=== PATIENT | male | born 1980 | race Caucasian/White ===

== ENCOUNTER 2020-11-02 15:27 | Emergency (ER) | payer OTHER ==
[2020-11-02] MEDS ORDERED: Tetracaine HCl/PF 0.5% 4 ML Bottle EYEBOTH ONE (16:46)
[2020-11-02] MEDS ORDERED: Ketorolac 60 MG/2 ML SDV IM ONE (17:40)
--- NOTE | 2020-11-02 18:39 | CT ---
INDICATION: Possible metal for left eye/orbit. Patient was mildly today. TECHNIQUE: CT facial bones and face without IV contrast including axial, coronal and sagittal images. FINDINGS: Opaque foreign body is curvilinear and in the left intraorbital region medially, medial to the eye, on image 138 of series 201. This measures 4 mm in length. This could be an intraorbital metallic foreign body. Tiny opaque foreign body in the right medial orbit on image 145 is difficult to characterize and could be related to calcification or metal. No other intraorbital foreign body. Moderate loculated fluid and mucosal thickening left maxillary sinus. Diffuse moderately prominent mucosal thickening and fluid in bilateral ethmoidal sinuses. Small amounts of fluid and mucosal thickening and nodularity in the sphenoid and frontal sinuses. Small a moderate amount of loculated fluid and mucosal thickening and nodularity right maxillary sinus. Findings consistent with diffuse sinusitis. Metallic foreign body in the tongue. Mild adenopathy in the mid and upper neck and lower face with increased number of small mildly to prominent lymph nodes likely reactive in nature. Remainder negative. IMPRESSION: 1. Linear 4 mm opaque foreign body in the medial left intraorbital region medial to the eye/globe may be a metallic foreign body. Tiny opaque density in the right medial orbit could be a calcification or metallic foreign body. No other intraorbital opaque foreign body. 2. Moderately prominent diffuse changes of sinusitis greatest in the left maxillary sinus. 3. Mild adenopathy in the lower face and mid and upper neck should be inflammatory or reactive in nature. Other findings as above. Please note that all CT scans at this facility use dose modulation, iterative reconstruction, and/or weight-based dosing when appropriate to reduce radiation dose to as low as reasonably achievable. Dictated by Raciel Rosenberg MD @ 11/02/2020 6:38:[address] Raciel Rosenberg @ Nov 02 2020 6:38PM
--- NOTE | 2020-11-02 21:36 | EDM.PDOC ---
ED HPI GENERAL MEDICAL PROBLEM - General Chief Complaint: Eye Problems Stated Complaint: LEFT EYE PAIN Time Seen by Provider: 11/02/20 16:42 Source of Information: Reports: Patient History Limitations: Reports: No Limitations - History of Present Illness INITIAL COMMENTS - FREE TEXT/NARRATIVE: HISTORY AND PHYSICAL: History of present illness: Patient is a 39-year-old male who presents emergency room today with concern of foreign body to his left eye that occurred just prior to travel to the emergency room. Patient states that he was using a hammer at work and hitting a piece of metal. Patient states about the third hit on the piece of metal, a piece of metal flew up underneath his safety glasses and hit directly into his eye. Patient states since then, he has had significant pain of his eye and watering so came to the emergency room for further evaluation. Patient denies any glasses or contact use. Patient denies any visual changes. Denies any other symptoms or concerns. Patient denies fever, chills, chest pain, shortness of breath, or cough. Denies headache, neck stiff ness, change in vision, syncope, or near syncope. Denies nausea, vomiting, abdominal pain, diarrhea, constipation, or dysuria. Has not noted any blood in urine or stool. Patient has been eating and drinking appropriately. Review of systems: As per history of present illness and below otherwise all systems reviewed and negative. Past medical history: As per history of present illness and as reviewed below otherwise noncontributory. Surgical history: As per history of present illness and as reviewed below otherwise noncontributory. Social history: See social history for further information Family history: As per history of present illness and as reviewed below otherwise noncontributory. Physical exam: General: Patient is alert, oriented, and in no acute distress. Patient sitting comfortably on exam table. Vitals stable and reviewed by me. HEENT: Visual acuity intact. EOMS intact without pain or difficulty. Fluroscene stain performed without evidence of corneal abrasion/ulceration but there is a 1cm conjunctival laceration of the lateral left eye without evidence of globus rupture / negative Janes sign. Bilateral upper and lower lids everted without sign of foreign body. Negative for corneal opacity, hyphema, or hypopyon. Otherwise, atraumatic, normocephalic, pupils equal and reactive bilaterally, negative for conjunctival pallor or scleral icterus, mucous membranes moist, TMs normal bilaterally, throat clear, neck supple, nontender, trachea midline. No drooling or trismus noted. No meningeal signs. No hot potato voice noted. Lungs: Clear to auscultation, breath sounds equal bilaterally, chest nontender. Heart: S1S2, regular rate and rhythm without overt murmur Abdomen: Soft, nondistended, nontender. Negative for masses or hepatosplenomegaly. Negative for costovertebral tenderness. Pelvis: Stable nontender. Genitourinary: Deferred. Rectal: Deferred. Skin: Intact, warm, dry. No lesions or rashes noted. Extremities: Atraumatic, negative for cords or calf pain. Neurovascular unremarkable. Neuro: Awake, alert, oriented. Cranial nerves II through XII unremarkable. Cerebellum unremarkable. Motor and sensory unremarkable throughout. Exam nonfocal. Notes: Patient is a 39-year-old male who presents emergency room today with concern of abrasion from metal getting in his left eye. Upon arrival to the ED, patient is vitally stable and visual acuity intact. Patient does have an abrasion noted to the lateral conjunctival of the left eye. After applying tetracaine ophthalmic, patient still has significant discomfort and little alleviation of his discomfort. Given patient's discomfort, and unable to find any foreign body on exam, will obtain CT of orbits. CT of orbit shows linear 4 mm opaque foreign body in the medial left intraorbital region, medial to the eye/globe may be a metallic foreign body. Tiny opaque density in the right medial orbit could be a calcified or metallic foreign body. No other intraorbital opaque foreign body. Moderate prominent diffuse changes of sinusitis greatest on the left maxillary sinus. Mild michelle nopathy in the lower face and mid and upper neck should be inflammatory or reactive in nature. All incidental findings of imaging today discussed with patient have this followed up at a later date with the primary care provider. I did call and speak to the machine strap buckler on-call, Dr. Bustos, and thoroughly discussed patient's case. She will personally review patient's CT scan and call me back. Dr. Bustos is having difficulties obtaining the imaging and is requesting that patient be discharged from the emergency room and sent over to her clinic for further evaluation following discharge from the emergency room. She would like patient to receive ofloxacin ophthalmic before being sent as she is not able to access this tonight and get this to patient tonight. Our pharmacy currently does not have ofloxacin ophthalmic drops, but will provide patient with ciprofloxacin ophthalmic drops to apply to the affected eye. Discussed with patient the importance of going across the street to [place] to see Dr. Bustos, machine strap buckler, for further evaluation immediately following discharge from the emergency room. Strict return precautions thoroughly discussed with patient. Discussed importance for follow-up with Dr. Bustos. Voices understanding and is agreeable to plan of care. Denies any further questions or concerns at this time. Diagnostics: fluoroscene bauer lamp, CT orbit Therapeutics: Tetracaine ophthalmic, toradol Prescription: Ciprofloxacin ophthalmic Impression: Conjunctival abrasion, left, possible retained foreign body Plan: 1. Apply medication to affected eye as prescribed. You can alternate ibuprofen and Tylenol as directed for pain and discomfort. 2. Following discharge from the emergency room, go immediately to [place] [facility] to meet with Dr. Bustos, ophthalmology. She is waiting for you on the first floor of the clinic. 3. Return to the ED as needed and as discussed. Definitive disposition and diagnosis as appropriate pending reevaluation and rev iew of above. left eye Pain Score (Numeric/FACES): 9 - Related Data Allergies Allergy/AdvReac Type Severity Reaction Status Date / Time No Known Allergies Allergy Verified 11/02/20 16:33 Home Meds: Home Meds . [No Known Home Meds] 11/02/20 [History] Past Medical History - Infectious Disease History Infectious Disease History: Reports: None - Past Surgical History GI Surgical History: Reports: Appendectomy, Cholecystectomy Social & Family History - Family History Family Medical History: No Pertinent Family History - Tobacco Use Tobacco Use Status *Q: Current Every Day Tobacco User Years of Tobacco use: 17 Packs/Tins Daily: 1 - Caffeine Use Caffeine Use: Reports: None - Recreational Drug Use Recreational Drug Use: No ED ROS GENERAL - Review of Systems Review Of Systems: Comprehensive ROS is negative, except as noted in HPI. ED EXAM GENERAL W FULL EYE - Physical Exam Exam: See Below (see dictation) Course - Vital Signs Last Recorded V/S: Last Vital Signs Temp 98.2 F 11/02/20 16:33 Pulse 77 11/02/20 16:33 Resp 17 11/02/20 16:33 BP 136/88 11/02/20 16:33 Pulse Ox 97 11/02/20 16:33 - Orders/Labs/Meds Orders: Active Orders 24 hr Category Date Time Status Communication Order [RC] STAT Care 11/02/20 16:46 Active Ciprofloxacin [Ciloxan 0.3% Ophth Soln] Med 11/02/20 21:45 Active 1 ml EYELF Q4H Medication Orders Ciprofloxacin (Ciprofloxacin 0.3% Ophth Soln 5 Ml Bottle) 1 ml EYELF Q4H YING Meds: Medications Generic Name Dose Route Start Last Admin Trade Name Freq PRN Reason Stop Dose Admin Ciprofloxacin 1 ml 11/02/20 21:45 Ciprofloxacin 0.3% Ophth Soln 5 Ml Bottle EYELF Q4H YING Discontinued Medications Generic Name Dose Route Start Last Admin Trade Name Freq PRN Reason Stop Dose Admin Ketorolac Tromethamine 60 mg 11/02/20 17:40 11/02/20 17:50 Ketorolac 60 Mg/2 Ml Sdv IM 11/02/20 17:41 60 mg ONETIME ONE Administration Tetracaine HCl 2 ml 11/02/20 16:46 11/02/20 17:07 Tetracaine Hcl/Pf 0.5% 4 Ml Bottle EYEBOTH 11/02/20 16:47 1 applic ASDIRECTED ONE Administration Departure - Departure Time of Disposition: 21:34 Disposition: Home, Self-Care 01 Clinical Impression: Conjunctival abrasion Qualifiers: Encounter type: initial encounter Laterality: left Qualified Code(s): S05.02XA - Injury of conjunctiva and corneal abrasion without foreign body, left eye, initial encounter - Discharge Information Instructions: Corneal Abrasion, [id number] Referrals: PCP,None [Primary Care Provider] - Forms: ED Department Discharge Additional Instructions: The following information is given to patients seen in the emergency department who are being discharged to home. This information is to outline your options for follow-up care. We provide all patients seen in our emergency department with a follow-up referral. The need for follow-up, as well as the timing and circumstances, are variable depending upon the specifics of your emergency department visit. If you don't have a primary care physician on staff, we will provide you with a referral. We always advise you to contact your personal physician following an emergency department visit to inform them of the circumstance of the visit and for follow-up with them and/or the need for any referrals to a consulting specialist. The emergency department will also refer you to a specialist when appropriate. This referral assures that you have the opportunity for follow-up care with a specialist. All of these measure are taken in an effort to provide you with optimal care, which includes your follow-up. Under all circumstances we always encourage you to contact your private physician who remains a resource for coordinating your care. When calling for follow-up care, please make the office aware that this follow-up is from your recent emergency room visit. If for any reason you are refused follow-up, please contact the [facility] Emergency Department at and asked to speak to the emergency department charge nurse. [facility], Ophthalmology, Dr. Bustos [address] [place] [address] 1. Apply medication to affected eye as prescribed. You can alternate ibuprofen and Tylenol as directed for pain and discomfort. 2. Following discharge from the emergency room, go immediately to [place] [facility] to meet with Dr. Bustos, ophthalmology. She is waiting for you on the first floor of the clinic. 3. Return to the ED as needed and as discussed. Sepsis Event Note (ED) - Focused Exam Vital Signs: Vital Signs Temp Pulse Resp BP Pulse Ox 11/02/20 16:33 98.2 F 77 17 136/88 97 - My Orders Last 24 Hours: My Active Orders 11/02/20 16:46 Communication Order [RC] STAT 11/02/20 21:45 Ciprofloxacin [Ciloxan 0.3% Ophth Soln] 1 ml EYELF Q4H - Assessment/Plan Last 24 Hours: My Active Orders 11/02/20 16:46 Communication Order [RC] STAT 11/02/20 21:45 Ciprofloxacin [Ciloxan 0.3% Ophth Soln] 1 ml EYELF Q4H
[2020-11-02] MEDS ORDERED: Ciprofloxacin 0.3% Ophth Soln 5 ML Bottle EYELF SCH (21:45)
== END 2020-11-02 21:53 | disposition home or self-care (01) ==
LOC: MW.ED 15:27
DX: S05.32XA Ocular laceration without prolapse or loss of intraocular tissue, left eye, initial encounter (principal); W22.8XXA Striking against or struck by other objects, initial encounter
CPT/HCPCS: 70486; 96372; 99283; J1885

== ENCOUNTER 2021-02-17 06:39 | Emergency (ER) | payer SELFPAY ==
[2021-02-17] MEDS ORDERED: Ketorolac 15 MG/ML SDV IM ONE (06:49)
[2021-02-17] MEDS ORDERED: Aspirin 81 MG Tab.Chew PO ONE (06:49)
--- NOTE | 2021-02-17 06:57 | EDM.PDOC ---
<Santana Zelaya - Last Filed: 02/17/21 06:56> ED HPI GENERAL MEDICAL PROBLEM - General Chief Complaint: Respiratory Problem Stated Complaint: SHORTNESS OF BREATH, CONGESTED Time Seen by Provider: 02/17/21 06:45 - History of Present Illness INITIAL COMMENTS - FREE TEXT/NARRATIVE: CHIEF COMPLAINT(S): "I cannot breathe." HISTORY OF PRESENT ILLNESS: This is a 40-year-old man without any significant pa st medical history who comes to the emergency department with a chief complaint of "I cannot breathe." Patient states that he presents to the emergency department because he has been experiencing 3 days of shortness of breath. He states that he just cannot breathe. He states that he does not have any exertional dyspnea but states that he is coughing which is nonproductive. However he states that he is having hemoptysis a significant amount every time he coughs. He describes it as bright red blood. He denies any recent travel, recent surgery or prior history of DVT or PE. He states that he has never had a history of hemoptysis. He states that he has mild congestion but has not had any epistaxis. In addition to the shortness of breath and hemoptysis he states that he is having chest pain which is located on the left side of his chest with radiates upwards. He describes his pain as achy and rated 4-5 out of 10. He has not yet tried any pain medication other than NyQuil which has not relieved his pain. There are no exacerbating or relieving factors. He states that he does have a significant family history of heart issues where his dad in his late 30s after a heart attack. He denies any personal history of CAD or CHF. He states that he is not able to taste or smell. He has not been vaccinated. REVIEW OF SYSTEMS: Constitutional: Denies fever, chills. Eyes: Denies eye pain Ears, Nose, Mouth, & Throat: Positive for runny nose and congestion. Denies earache Cardiovascular: Positive for chest pain Respiratory: Positive for shortness of breath hemoptysis Gastrointestinal: Denies Nausea, vomiting, diarrhea, hematochezia. Genitourinary: Denies hematuria Skin:Denies a rash MSK: Denies joint pain Neurological: Positive for loss of taste and smell. Denies blurred vision, numbness, tingling, weakness Psychiatric: Denies depression PAST MEDICAL HISTORY: As per history of present illness and as reviewed below otherwise noncontributory. SURGICAL HISTORY: As per history of present illness and as reviewed below otherwise noncontributory. SOCIAL HISTORY: As per history of present illness and as reviewed below otherwise noncontributory. FAMILY HISTORY: As per history of present illness and as reviewed below otherwise noncontributory. EXAMINATION OF ORGAN SYSTEMS/BODY AREAS: Constitutional: Blood pressure is 116/79, heart rate 66, respiratory 20 with an oxygen saturation 98% on room air. Temperature 36.9 General: Young man who does not appear to be in acute distress Psychiatric: Appropriate mood and affect. Eyes: No scleral icterus or conjunctival erythema ENMT: Moist mucous membranes. No pharyngeal erythema bilateral nasal turbinates with clear nasal drainage. No evidence of epistaxis. Cardiovascular: Regular, rate, and rhythm. No gallops, murmurs, or rubs. Bilateral upper extremity pulses symmetric and intact. No peripheral edema. No JVD. Respiratory: Lungs clear to auscultation bilaterally. No wheezes, rales, or rhonchi. Gastrointestinal: Soft, non-tender, non-distended. Normoactive bowel sounds Genitourinary: No suprapubic tenderness Musculoskeletal: Normal range of motion. Skin: No lesions or abrasions. Neurological: Alert, GCS 15 MEDICAL DECISION MAKING AND COURSE IN THE ED WITH INTERPRETATION/REVIEW OF DIAGNOSTIC STUDIES: This is a 40-year-old man without any significant past medical history who comes to the emergency department with 3 days of shortness of breath, cough which is described as hemoptysis who has had loss of taste and smell with some chest pain with a significant family history in his father who at young age from CAD/heart attack. Given the patient's family history will obtain a cardiac work-up. EKG was obtained which did not reveal any acute signs of ischemia. Given the hemoptysis will obtain a CT angiogram of the chest to evaluate for pulmonary embolism. Given the loss of taste and smell I do believe this is possibly secondary to COVID-19. We will provide the patient w ith Toradol and aspirin. Patient was placed on cardiac monitoring and pulse oximetry. Cardiac monitoring did reveal sinus rhythm and pulse ox with good waveform was 98% on room air. DDx: COVID-19 pneumonia, bacterial pneumonia, ACS, pulmonary embolism DISPOSITION: At the time of signout the patient was pending complete work-up and final disposition. Patient was signed out to oncoming day team physician CONDITION: Fair PROCEDURES: None FINAL IMPRESSION(S)/DIAGNOSES: 1. Acute dyspnea 2. Acute chest pain 3. Acute hemoptysis Santana Zelaya M.D. Bilateral Trunk Pain Score (Numeric/FACES): 8 - Related Data Allergies Allergy/AdvReac Type Severity Reaction Status Date / Time No Known Allergies Allergy Verified 02/17/21 06:48 Home Meds: Home Meds Azithromycin [Zithromax] 250 mg PO DAILY #4 tablet 02/17/21 [Rx] Ibuprofen 600 mg PO Q6HR PRN #30 tablet 02/17/21 [Rx] Past Medical History - Past Health History Medical/Surgical History: Denies Medical/Surgical History - Infectious Disease History Infectious Disease History: Reports: None - Past Surgical History Head Surgeries/Procedures: Reports: None GI Surgical History: Reports: Appendectomy, Cholecystectomy Social & Family History - Family History Family Medical History: No Pertinent Family History - Caffeine Use Caffeine Use: Reports: None - Recreational Drug Use Recreational Drug Use: No ED ROS GENERAL - Review of Systems Review Of Systems: See Below ED EXAM, GENERAL - Physical Exam Exam: See Below Departure - Departure Disposition: Home, Self-Care 01 Clinical Impression: Bronchitis - Discharge Information Instructions: Upper Respiratory Infection, Adult, [id number], Acute Bronchitis, Adult, [id number] Forms: ED Department Discharge Additional Instructions: Your seen and evaluated in ER today secondary to cough and sinus symptoms that could be concerning for coronavirus or other viral infections. All your test in emergency department today were unremarkable with a negative Covid/influenza test. Your CT scan did not reveal any pathology within your chest. Your EKG and your heart enzymes are all within normal limits. You will be given a prescription for Zithromax to take as well as ibuprofen to help you with fevers and muscle aches. Please make an appointment see your family doctor in 1 to 2 days. Please return to the ER if you develop any new or concerning symptoms. The following information is given to patients seen in the emergency department who are being discharged to home. This information is to outline your options for follow-up care. We provide all patients seen in our emergency department with a follow-up referral. The need for follow-up, as well as the timing and circumstances, are variable depending upon the specifics of your emergency department visit. If you don't have a primary care physician on staff, we will provide you with a referral. We always advise you to contact your personal physician following an emergency department visit to inform them of the circumstance of the visit and for follow-up with them and/or the need for any referrals to a consulting specialist. The emergency department will also refer you to a specialist when appropriate. This referral assures that you have the opportunity for follow-up care with a specialist. All of these measure are taken in an effort to provide you with optimal care, which includes your follow-up. Under all circumstances we always encourage you to contact your private physician who remains a resource for coordinating your care. When calling for follow-up care, please make the office aware that this follow-up is from your recent emergency room visit. If for any reason you are refused follow-up, please contact the [facility] Emergency Department at and asked to speak to the emergency department charge nurse. [facility] - Primary Care [address] [place] [address] [place] [address] Sepsis Event Note (ED) - Evaluation Sepsis Screening Result: No Definite Risk <Aakash Chang - Last Filed: 02/17/21 09:00> ED HPI GENERAL MEDICAL PROBLEM - History of Present Illness INITIAL COMMENTS - FREE TEXT/NARRATIVE: 8:54 aM: Signout received from Dr. Sahu at 7 AM. Patient presents ER today with signs symptoms consistent with an upper respiratory infection. Patient's labs are all within normal limits. Patient's EKG is unremarkable. Patient's troponin is negative. Patient's Covid/influenza test were negative. Patient had a CTA which not reveal any evidence of pneumonia, PE or other pulmonary/thoracic pathology. I have discussed the patient's results with him and utilizing shared decision making we will start him on Zithromax and ibuprofen and follow-up with his PCP this week. Reassessment at the time of disposition demonstrates that the patient is in no acute distress. The patient has remained stable throughout the entire ED visit and is without objective evidence for acute process requiring urgent intervention or hospitalization. The patient is stable for discharge, counseling is provided as documented above, discussed symptomatic treatment and specific conditions for return. I have spoken with the patient/caregiver and discussed todays findings, in addition to providing specific details for the plan of care. Questions are answered and there is agreement with the plan. Course - Vital Signs Last Recorded V/S: Last Vital Signs Temp 98.2 F 02/17/21 07:58 Pulse 67 02/17/21 07:58 Resp 18 02/17/21 07:58 BP 118/83 02/17/21 07:58 Pulse Ox 97 02/17/21 07:58 - Orders/Labs/Meds Labs: Laboratory Tests 02/17/21 02/17/21 02/17/21 Range/Units 06:45 07:10 07:10 WBC 10.41 (4.0-11.0) K/uL RBC 5.09 (4.50-5.90) M/uL Hgb 16.3 (13.0-17.0) g/dL Hct 47.5 (38.0-50.0) % MCV 93.3 (80.0-98.0) fL MCH 32.0 (27.0-32.0) pg MCHC 34.3 (31.0-37.0) g/dL RDW Std Deviation 44.9 (28.0-62.0) fl RDW Coeff of Shante 13 (11.0-15.0) % Plt Count 230 (150-400) K/uL MPV 10.20 (7.40-12.00) fL Neut % (Auto) 64.3 (48.0-80.0) % Lymph % (Auto) 14.6 L (16.0-40.0) % [place] % (Auto) 13.1 (0.0-15.0) % Eos % (Auto) 7.4 H (0.0-7.0) % Baso % (Auto) 0.6 (0.0-1.5) % Neut # (Auto) 6.7 H (1.4-5.7) K/uL Lymph # (Auto) 1.5 (0.6-2.4) K/uL [place] # (Auto) 1.4 H (0.0-0.8) K/uL Eos # (Auto) 0.8 H (0.0-0.7) K/uL Baso # (Auto) 0.1 (0.0-0.1) K/uL Nucleated RBC % 0.0 /100WBC Nucleated RBCs # 0 K/uL Sodium 141 (136-148) mmol/L Potassium 4.0 (3.5-5.1) mmol/L Chloride 106 (98-107) mmol/L Carbon Dioxide 23.9 (21.0-32.0) mmol/L BUN 13 (7.0-18.0) mg/dL Creatinine 0.9 (0.8-1.3) mg/dL Est Cr Clr Drug Dosing 114.91 mL/min Estimated GFR (MDRD) > 60.0 ml/min Glucose 109 H (74-106) mg/dL Calcium 8.4 L (8.5-10.1) mg/dL Magnesium 2.1 (1.8-2.4) mg/dL Total Bilirubin 0.4 (0.2-1.0) mg/dL AST 15 (15-37) IU/L ALT 25 (14-63) IU/L Alkaline Phosphatase 95 (46-116) U/L Troponin I < 0.050 (0.000-0.056) ng/mL Total Protein 7.0 (6.4-8.2) g/dL Albumin 3.2 L (3.4-5.0) g/dL Globulin 3.8 (2.6-4.0) g/dL Albumin/Globulin Ratio 0.8 L (0.9-1.6) Influenza Type A RNA NEGATIVE (NEGATIVE) Influenza Type B RNA NEGATIVE (NEGATIVE) SARS-CoV-2 RNA (LUIS) NEGATIVE (NEGATIVE) Meds: Medications Discontinued Medications Generic Name Dose Route Start Last Admin Trade Name Freq PRN Reason Stop Dose Admin Aspirin 324 mg 02/17/21 06:49 02/17/21 07:12 Aspirin 81 Mg Tab.Chew PO 02/17/21 06:50 324 mg ONETIME ONE Administration Iopamidol 100 ml 02/17/21 08:44 02/17/21 08:45 Iopamidol 755 Mg/Ml 500 Ml Multipack Bottle IVPUSH 02/17/21 08:45 100 ml ONETIME STA Administration Ketorolac Tromethamine 15 mg 02/17/21 06:49 02/17/21 07:27 Ketorolac 15 Mg/Ml Sdv IM 02/17/21 06:50 Not Given ONETIME ONE Ketorolac Tromethamine 15 mg 02/17/21 07:06 02/17/21 07:11 Ketorolac 30 Mg/Ml Sdv IM 02/17/21 07:07 15 mg ONETIME ONE Administration Departure - Departure Time of Disposition: 08:58 Condition: Good Sepsis Event Note (ED) - Focused Exam Vital Signs: Vital Signs Temp Pulse Resp BP Pulse Ox 02/17/21 07:58 98.2 F 67 18 118/83 97 02/17/21 06:48 98.5 F 66 20 116/79 98
--- NOTE | 2021-02-17 06:58 | PCM.EKG ---
#1 Interpretation EKG Date: 02/17/21 Time: 06:43 Rhythm: NSR Rate (Beats/Min): 78 [place]: Normal P-Wave: Present QRS: Normal ST-T: Normal (S1Q3T3) QT: Normal Comparison: NA - No Prior EKG EKG Interpretation Comments: Sinus Rhythm with S1Q3T3
[2021-02-17] MEDS ORDERED: Ketorolac 30 MG/ML SDV IM ONE (07:06)
[2021-02-17 07:24] LABS: CORONAVIRUS COVID-19 NAA NEGATIVE (NEGATIVE); INFLUENZA A NAA NEGATIVE (NEGATIVE); INFLUENZA B NAA NEGATIVE (NEGATIVE)
[2021-02-17 07:41] LABS: BLOOD UREA NITROGEN,BUN 13 mg/dL (7.0-18.0); CARBON DIOXIDE,CO2 23.9 mmol/L (21.0-32.0); CHLORIDE,CL 106 mmol/L (98-107); GLUCOSE RANDOM 109 mg/dL (74-106); SODIUM,NA 141 mmol/L (136-148)
[2021-02-17] MEDS ORDERED: Iopamidol 755 MG/ML 500 ML Multipack Bottle IVPUSH STA (08:44)
--- NOTE | 2021-02-17 08:51 | CT ---
INDICATION: Hemoptysis; dyspnea. COMPARISON: None. TECHNIQUE: CT chest with intravenous contrast; coronal and sagittal reformats. FINDINGS: No evidence of acute or chronic pulmonary thromboembolism. Normal size cardiac silhouette without any evidence of pericardial effusion. No abnormal mediastinal or hilar lymphadenopathy. No endobronchial pathology. No evidence of pleural effusion or chest wall pathology. No evidence of pulmonary infiltrates. Limited CT through the upper abdomen reveals evidence of cholecystectomy. IMPRESSION: 1. No evidence of pulmonary thromboemboli. 2. Status post cholecystectomy. 3. Negative CT chest with intravenous contrast. Please note that all CT scans at this facility use dose modulation, iterative reconstruction, and/or weight-based dosing when appropriate to reduce radiation dose to as low as reasonably achievable. Dictated by Drew Franks MD @ 02/17/2021 8:50:13 AM (Electronically Signed)
[2021-02-17] MEDS ORDERED: Azithromycin 250 MG Tab PO ONE (09:00)
== END 2021-02-17 09:45 | disposition home or self-care (01) ==
LOC: MW.ED 06:39
DX: J40 Bronchitis, not specified as acute or chronic (principal); R04.2 Hemoptysis; Z20.822 Contact with and (suspected) exposure to COVID-19
CPT/HCPCS: 0240U; 36415; 71275; 80053; 83735; 84484; 85025; 93005; 96372; 99285; A9270; J1885; Q9967

== ENCOUNTER 2021-03-31 21:00 | Emergency (ER) | payer OTHER ==
[2021-03-31] MEDS ORDERED: Acetaminophen/HYDROcodone 325-5 MG Tab PO ONE (21:56)
[2021-03-31] MEDS ORDERED: Ketorolac 60 MG/2 ML SDV IM ONE (22:25)
[2021-03-31] MEDS ORDERED: Ketorolac 30 MG/ML SDV IM ONE (22:32)
== END 2021-03-31 23:12 | disposition home or self-care (01) ==
LOC: MW.ED 21:00
DX: S69.92XA Unspecified injury of left wrist, hand and finger(s), initial encounter (principal); W22.09XA Striking against other stationary object, initial encounter
CPT/HCPCS: 73140; 96372; 99283; J1885